=== PATIENT | female | born 1960 | race Caucasian/White ===

== ENCOUNTER 2017-10-29 19:06 | Emergency (ER) | payer OTHER ==
[~2017-10-29] VITALS: Ht 162.6 cm; Wt 61.6 kg
[~2017-10-29 19:06] MED LIST: ETHINYL ESTRADIOL TD; NORELGESTROMIN TD
[2017-10-29 19:08] VITALS: BP 150/64; PULSE 88; RESP 16; TEMP 97.4; O2SAT 98
[2017-10-29] MEDS ORDERED: CEPH-459 PO (19:54)
--- NOTE | 2017-10-29 19:55 | PD ---
HPI Chief Complaint: Laceration/Skin Injury Time Seen by Provider: 19:26 Travel History International Travel<30 days: No Contact w/Intl Traveler<30days: No Traveled to known affect area: No History of Present Illness HPI This is a 56-year-old patient with a laceration to the left index finger caused by a knife while opening a box. Injury occurred prior to arrival. She reports normal sensation and full range of motion of the finger. Symptom severity is moderate. No aggravating or alleviating factors. Tetanus immunization unknown. PFSH Past Medical History Medical History: Denies Significant Hx Cancer: No Diabetes: No Hepatitis: No Hiatal Hernia: No Thyroid Disease: No ?: Not Past Surgical History Abdominal Surgery: No Cardiac Surgery: No Ear Surgery: No Endocrine Surgery: No Eye Surgery: No Genitourinary Surgery: No Gynecologic Surgery: No Oral Surgery: No Pacemaker: No Thoracic Surgery: No Social History Alcohol Use: No Tobacco Use: No Substance Use: No Allergies-Medications (Allergen,Severity, Reaction): Coded Allergies: No Known Allergies (Verified Adverse Reaction, Unknown, 10/29/17) Reported Meds & Prescriptions Reported Meds & Active Scripts Active Keflex (Cephalexin) 250 Mg Cap 250 Mg PO Q6H 7 Days Review of Systems Except as stated in HPI: all other systems reviewed are Neg Physical Exam Narrative GENERAL: Alert female well-appearing. SKIN: Warm and dry. CM laceration to left index finger HEAD: Normocephalic. EYES: No scleral icterus. No injection or drainage. NECK: Supple, trachea midline. No JVD or lymphadenopathy. MUSCULOSKELETAL: No cyanosis, or edema. Left hand: 1 cm laceration to the distal aspect of the left index finger. Patient has full range of motion and normal sensation. No tendon or vascular injury. Brisk cap refill. Data Data Last Documented VS Vital Signs Date Time Temp Pulse Resp B/P (MAP) Pulse Ox O2 Delivery O2 Flow Rate FiO2 10/29/17 19:08 97.4 88 16 150/64 (92) 98 Orders Orders Tetanus/Diphtheria Tox Adult (Tetanus/Di (10/29/17 20:00) MDM Medical Decision Making Medical Screen Exam Complete: Yes Emergency Medical Condition: Yes Differential Diagnosis Finger laceration, tendon injury, ligament injury Narrative Course 56-year-old female here with laceration to the left index finger distal aspect. No ligament or neurovascular injury. The extremity is neurovascular intact. Laceration Repair performed. Patient tolerated procedure well. Procedures Procedure Narrative LACERATION LOCATION: Left index finger LENGTH: 1CM NUMBER OF STITCHES/JORDYN: 4 REPAIR: The area of the laceration was prepped with Betadine and sterilely draped. Digital block with 1% lidocaine. The wound was copiously irrigated and explored without evidence of foreign body, tendon injury or neurovascular injury. The wound was closed using 4-0 Prolene. This was a single layer repair. A sterile dressing was applied. The patient was advised to keep the dressing clean and dry. Patient tolerated the procedure well. Diagnosis Primary Impression: Finger laceration Qualified Codes: S61.211A - Laceration without foreign body of left index finger without damage to nail, initial encounter Referrals: Primary Care Physician Additional Instructions: Sutures need to be removed in 7-10 days. Do not submerge the wound in water. Antibiotics as prescribed. Scripts Cephalexin (Keflex) 250 Mg Cap 250 MG PO Q6H for Infection for 7 Days, #28 CAP 0 Refills Prov: Melia Sterling 10/29/17 Disposition: 01 DISCHARGE HOME Condition: Stable Melia Sterling Oct 29, 2017 19:54
[2017-10-29] MEDS ORDERED: TETANUS/DIPHTHERIA TOXOID ADULT 0.5 ML VIAL IM ONE (20:00)
== END 2017-10-29 20:06 | disposition home or self-care (01) ==
LOC: PHEFT 19:06
DX: S61.211A Laceration without foreign body of left index finger without damage to nail, initial encounter (principal); Z23 Encounter for immunization; W26.0XXA Contact with knife, initial encounter
CPT/HCPCS: 12001; 90471; 90714

== ENCOUNTER 2017-12-11 06:10 | Emergency (ER) | payer OTHER ==
[~2017-12-11] VITALS: Ht 162.6 cm; Wt 63.0 kg
[~2017-12-11 06:10] MED LIST changes: +CEPH-459 PO; -ETHINYL ESTRADIOL TD; -NORELGESTROMIN TD
[2017-12-11 06:14] VITALS: BP 132/62; PULSE 70; RESP 20; TEMP 97.7
--- NOTE | 2017-12-11 06:31 | PD ---
HPI Chief Complaint: Complaint Time Seen by Provider: 06:25 Travel History International Travel<30 days: No Contact w/Intl Traveler<30days: No Traveled to known affect area: No History of Present Illness HPI 57-year-old female presents to the emergency department by private transportation for complaint of possible urinary tract infection. Patient is noted since Friday increasing urinary frequency urgency and dysuria. No gross hematuria. Patient has had subjective chills but no fever. No nausea no vomiting no report of voice chest pain shortness of breath generalized abdominal pain flank pain vaginal discharge or vaginal bleeding. Patient reports she is otherwise in good health takes no medications on a regular basis and takes no prescription medications. Patient rates her discomfort 8/10 intensity with urination. PFSH Past Medical History Narrative Medical Negative past medical history negative surgical history; no tobacco use; nursing notes reviewed Cancer: No Diabetes: No Hepatitis: No Hiatal Hernia: No Thyroid Disease: No Past Surgical History Abdominal Surgery: No Cardiac Surgery: No Ear Surgery: No Endocrine Surgery: No Eye Surgery: No Genitourinary Surgery: No Gynecologic Surgery: No Oral Surgery: No Pacemaker: No Thoracic Surgery: No Social History Alcohol Use: No Tobacco Use: No Substance Use: No Allergies-Medications (Allergen,Severity, Reaction): Coded Allergies: No Known Allergies (Verified Adverse Reaction, Unknown, 12/11/17) Reported Meds & Prescriptions Reported Meds & Active Scripts Active Review of Systems Except as stated in HPI: all other systems reviewed are Neg Physical Exam Narrative GENERAL: Well-developed well-nourished female no acute distress or respiratory distress SKIN: Warm and dry. HEAD: Normocephalic. EYES: No scleral icterus. No injection or drainage. NECK: Supple, trachea midline. No JVD or lymphadenopathy. CARDIOVASCULAR: Regular rate and rhythm without murmurs, gallops, or rubs. RESPIRATORY: Breath sounds equal bilaterally. No accessory muscle use. GASTROINTESTINAL: Abdomen soft, non-tender except mild suprapubic pressure to direct palpation without guarding or rebound, nondistended. MUSCULOSKELETAL: No cyanosis, or edema. BACK: Nontender without obvious deformity. No CVA tenderness. Data Data Last Documented VS Vital Signs Date Time Temp Pulse Resp B/P (MAP) Pulse Ox O2 Delivery O2 Flow Rate FiO2 12/11/17 06:28 16 12/11/17 06:14 97.7 70 132/62 (85) Orders Orders Urinalysis - C+S If Indicated (12/11/17 06:25) Labs Laboratory Tests Test 12/11/17 06:30 [facility] Medical Decision Making Medical Screen Exam Complete: Yes Emergency Medical Condition: Yes Medical Record Reviewed: Yes Differential Diagnosis Dysuria, UTI, bladder spasm, pelvic infection Narrative Course Urine specimen collected and sent for resulting patient with stable vital signs and otherwise unremarkable Zickel exam Diagnosis Primary Impression: UTI (urinary tract infection) Referrals: Primary Care Physician call for appointment Patient Instructions: General Instructions Additional Instructions: Increase fluid hydration Take Tylenol/acetaminophen every 4 hours as needed for fever or minor pain per package directions Ibuprofen/Advil/Motrin every 6-8 hours as needed for fever 100.4F or greater pain scissures inflammation per package directions Complete course of antibiotic as prescribed Return to the emergency department for any concerns or change in condition Med/Other Pt SpecificInfo: Prescription(s) given Scripts Phenazopyridine (Pyridium) 100 Mg Tab 100 MG PO Q8H Y for DYSURIA, #6 TAB 0 Refills Prov: Zahra Kennedy MD 12/11/17 Nitrofurantoin Monohydrate Macrocrystals (Macrobid) 100 Mg Cap 100 MG PO BID for Infection for 10 Days, #20 CAP 0 Refills Prov: Zahra Kennedy MD 12/11/17 Disposition: 01 DISCHARGE HOME Condition: Stable Zahra Kennedy MD Dec 11, 2017 06:31
[2017-12-11 06:46] LABS: BILIRUBIN, URINE NEG (NEG); BLOOD, URINE LARGE (NEG); GLUCOSE,URINE NEG (NEG); KETONE, URINE NEG (NEG); NITRITE,URINE NEG (NEG); PH, URINE 5.5 (5.0-8.5); URINE LEUKOCYTE ESTERASE MOD (NEG)
[2017-12-11] MEDS ORDERED: MACR100C2 PO (06:47)
[2017-12-11] MEDS ORDERED: PHEN0.4T PO (06:47)
[2017-12-11 07:07] LABS: URINE COLOR RED (YELLW/STRAW); WBC, URINE 15-19 /hpf (0-5)
[2017-12-11 07:08] LABS: BACTERIA, URINE FEW /hpf; RBC, URINE INNUM /hpf (0-3); SQUAMOUS EPITHELIAL CELL URINE 0-3 /hpf (0-5); WHITE BLOOD CELL CLUMPS FEW
--- NOTE | 2017-12-11 07:11 | PD ---
Physical Exam Date Seen by Provider: Dec 11, 2017 Time Seen by Provider: 07:[address] Kennedy's documentation. Briefly this is a 57-year-old female who presented for urinary complaint and possible UTI. Data Data Last Documented VS Vital Signs Date Time Temp Pulse Resp B/P (MAP) Pulse Ox O2 Delivery O2 Flow Rate FiO2 12/11/17 06:28 16 12/11/17 06:14 97.7 70 132/62 (85) Orders Orders Urinalysis - C+S If Indicated (12/11/17 06:25) Urine Culture (12/11/17 06:30) Ed Discharge Order (12/11/17 07:11) Labs Laboratory Tests Test 12/11/17 06:30 Urine Collection Type CLEAN CATCH Urine Color RED Urine Turbidity CLOUDY Urine pH 5.5 Urine Specific Graff 1.015 Urine Protein 30 mg/dL Urine Glucose (UA) NEG mg/dL Urine Ketones NEG mg/dL Urine Occult Blood LARGE Urine Nitrite NEG Urine Bilirubin NEG Urine Leukocyte Esterase MOD Urine RBC INNUM /hpf Urine WBC 15-19 /hpf Urine WBC Clumps FEW Urine Squamous Epithelial Cells 0-3 /hpf Urine Bacteria FEW /hpf Microscopic Urinalysis Comment CULTURE INDICATED MDM Medical Record Reviewed: Yes Supervised Visit with AMY: No Interpretation(s) Laboratory Tests Test 12/11/17 06:30 Urine Collection Type CLEAN CATCH Urine Color RED Urine Turbidity CLOUDY Urine pH 5.5 Urine Specific Graff 1.015 Urine Protein 30 mg/dL Urine Glucose (UA) NEG mg/dL Urine Ketones NEG mg/dL Urine Occult Blood LARGE Urine Nitrite NEG Urine Bilirubin NEG Urine Leukocyte Esterase MOD Urine RBC INNUM /hpf Urine WBC 15-19 /hpf Urine WBC Clumps FEW Urine Squamous Epithelial Cells 0-3 /hpf Urine Bacteria FEW /hpf Microscopic Urinalysis Comment CULTURE INDICATED Narrative Course Patient was signed out to me with urinalysis pending and plan for discharge which had already been written by Dr. Kennedy. Patient's urinalysis is suggestive of infection. After discharge with antibiotics and close outpatient follow-up. Patient understands the importance of close outpatient follow-up. She understands she may require further testing and treatment as an outpatient. She understands strict return indications. She is comfortable with this plan and eager to go home. Diagnosis Primary Impression: UTI (urinary tract infection) Qualified Codes: N30.01 - Acute cystitis with hematuria Referrals: Primary Care Physician call for appointment Patient Instructions: General Instructions Additional Instruction: Increase fluid hydration Take Tylenol/acetaminophen every 4 hours as needed for fever or minor pain per package directions Ibuprofen/Advil/Motrin every 6-8 hours as needed for fever 100.4F or pain per package directions Complete course of antibiotic as prescribed Return to the emergency department for any concerns or change in condition Med/Other Pt SpecificInfo: Prescription(s) given Scripts Phenazopyridine (Pyridium) 100 Mg Tab 100 MG PO Q8H Y for DYSURIA, #6 TAB 0 Refills Prov: Zahra Kennedy MD 12/11/17 Nitrofurantoin Monohydrate Macrocrystals (Macrobid) 100 Mg Cap 100 MG PO BID for Infection for 10 Days, #20 CAP 0 Refills Prov: Zahra Kennedy MD 12/11/17 Disposition: 01 DISCHARGE HOME Condition: Stable Kiara De Leon MD Dec 11, 2017 07:11
== END 2017-12-11 07:34 | disposition home or self-care (01) ==
LOC: PHED 06:10
DX: N30.01 Acute cystitis with hematuria (principal)
CPT/HCPCS: 81001; 87086; 99283